=== PATIENT | male | born 1990 | race Caucasian/White ===

== ENCOUNTER 2022-04-13 18:31 | Outpatient (CLI) | payer MEDICAID, SELFPAY ==
[2022-04-13 21:37] LABS: Albumin* 4.6 g/dL (3.3-5.0); Chloride* 104 mmol/L (96-114); Potassium* 4.2 mmol/L (3.6-5.1); Sodium* 139 mmol/L (135-149)
[2022-04-13 21:39] LABS: Creatinine* 0.7 mg/dL (0.5-1.5); Estimated Glomerular Filt Rate 126 ml/min
[2022-04-13 21:40] LABS: Alanine Aminotransferase* 36 U/L (4-50); Alkaline Phosphatase* 48 U/L (40-150); Aspartate Amino Transferase* 31 U/L (12-35); Bilirubin Direct* 0.2 mg/dL (0.0-0.5); Bilirubin Total* 0.5 mg/dL (0.1-1.5); Blood Urea Nitrogen* 14 mg/dL (5-24); Calcium* 9.6 mg/dL (8.4-10.6); Carbon Dioxide* 26 mmol/L (20-32); Glucose* 92 mg/dL (60-115); Lipase* 86 U/L (23-300); Total Protein* 7.3 g/dL (6.0-8.3)
== END 2022-04-13 18:32 | disposition home or self-care (01) ==
PROVIDERS: Visit Provider Emergency Medicine
DX: R10.9 Unspecified abdominal pain (principal)
CPT/HCPCS: 80048; 80076; 83690

== ENCOUNTER 2022-04-15 18:37 | Outpatient (CLI) | payer MEDICAID, SELFPAY ==
[2022-04-15 22:55] LABS: H pylori Ag Stool* Negative (Negative)
== END 2022-04-15 18:38 | disposition home or self-care (01) ==
PROVIDERS: PCP Emergency Medicine; Visit Provider Emergency Medicine
DX: R10.9 Unspecified abdominal pain (principal)
CPT/HCPCS: 87338

== ENCOUNTER 2023-01-19 09:55 | Outpatient (CLI) | payer MEDICAID, SELFPAY | END 2023-01-19 09:56 | disposition home or self-care (01) | LOC: LKVREF 09:56 | PROVIDERS: PCP Emergency Medicine; Visit Provider Emergency Medicine | DX: R10.9 Unspecified abdominal pain (principal) | CPT/HCPCS: 86140; 87086 ==

== ENCOUNTER 2023-04-15 13:41 | Outpatient (CLI) | payer MEDICAID, SELFPAY ==
--- NOTE | 2023-04-15 14:00 | CRLHL7_ITS ---
For Patients: As a result of the Century Cures Act, medical imaging exams and procedure reports are released immediately into your electronic medical record. You may view this report before your referring provider. If you have questions, please contact your health care provider. INDICATION: Abdominal pain TECHNIQUE: Axial images were obtained from the diaphragm to the pubic symphysis. Reformats were obtained in the coronal and sagittal plane. IV Contrast: 98 cc Isovue 370 Oral Contrast: None COMPARISON: None. FINDINGS: Lower chest: Calcified right infrahilar lymph nodes. Liver: Decreased density of the liver without focal intrahepatic lesion. Gallbladder and bile ducts: Unremarkable. No stones or inflammation. No biliary dilatation. Spleen: Minimal punctate calcifications within the spleen consistent with old granulomatous disease. Pancreas: Unremarkable. No mass or inflammation. Adrenal glands: Unremarkable. No nodules. Kidneys: Unremarkable. No masses, stones, or hydronephrosis. Vasculature: Unremarkable. GI tract: Mean stomach is unremarkable. No dilated loops of large or small intestine fat stranding within the central mesentery with subcentimeter mesenteric lymph nodes. Appendix unremarkable. Pelvis: Unremarkable. Bones: Unremarkable for age. IMPRESSION: 1. Mild fat stranding within the central mesentery with subcentimeter mesenteric lymph nodes. This is a nonspecific finding with a broad differential diagnosis. Difficult diagnosis ranges from mesenteric panniculitis, mesenteric adenitis, enteritis, lymphedema and rarely lymphoma. Often this is an incidental idiopathic finding. Follow up study could be considered in 3-6 months to assess the stability or regression of this finding. 2. Mild hepatic steatosis. 3. Old granulomatous disease. Please note that all CT scans at this facility use dose modulation, iterative reconstruction, and/or weight-based dosing when appropriate to reduce radiation dose to as low as reasonably achievable. Dictated by Jim Nguyen MD @ 04/18/2023 8:09:54 AM (Electronically Signed)
== END 2023-04-15 13:42 | disposition home or self-care (01) ==
LOC: CT 13:42
PROVIDERS: PCP Emergency Medicine; Visit Provider Emergency Medicine
DX: R10.9 Unspecified abdominal pain (principal); K76.0 Fatty (change of) liver, not elsewhere classified
CPT/HCPCS: 74177; Q9967

== ENCOUNTER 2023-06-24 08:53 | Outpatient (CLI) | payer MEDICAID, SELFPAY ==
--- NOTE | 2023-06-24 09:59 | W.ANESCHARGE ---
Anesthesia Charges Start Date/Time Anesthesia Start Date: 06/24/23 Anesthesia Start Time: 09:41 Stop Date/Time Anesthesia Stop Date: 06/24/23 Anesthesia Stop Time: 10:10
--- NOTE | 2023-06-24 10:11 | W.ANESCHARGE ---
Anesthesia Charges Start Date/Time Anesthesia Start Date: 06/24/23 Anesthesia Start Time: 09:41 Stop Date/Time Anesthesia Stop Date: 06/24/23 Anesthesia Stop Time: 10:10
== END 2023-06-24 08:54 | disposition home or self-care (01) ==
LOC: OP CLINIC 08:56
PROVIDERS: PCP Emergency Medicine; Visit Provider Internal Medicine
DX: R10.30 Lower abdominal pain, unspecified (principal); K63.5 Polyp of colon
CPT/HCPCS: 00811; 45380; 88305; J2704